=== PATIENT | female | born 1970 | race Caucasian/White ===

== ENCOUNTER 2018-03-05 08:12 | Day surgery (SDC) | payer OTHER ==
[2018-03-05] MEDS ORDERED: LR 1,000 ML IV ONE (08:23)
[2018-03-05] MEDS ORDERED: LIDOCAINE 1% 2 ML INJ ID PRN (08:23)
[2018-03-05] MEDS ORDERED: BUPIVACAINE 0.25% 30 ML SDV ONE (08:40)
--- NOTE | 2018-03-05 09:35 | PDHPUP ---
History & Physical Update H&P update statement: This history and physical update is based on an assessment of the patient which was completed after admission or registration (within 24 hours), but prior to the surgery/procedure. H&P update: no change in patient's condition since H&P completed (Heart and lungs on pre op exam normal)
--- NOTE | 2018-03-05 09:35 | PDANEPAE ---
ANE Past Medical History - Cardiovascular History Hx Hypertension: No Hx Arrhythmias: No Hx Chest Pain: No Hx Coronary Artery / Peripheral Vascular Disease: No Hx CHF / Valvular Disease: No Hx Palpitations: No - Pulmonary History Hx COPD: No Hx Asthma/Reactive Airway Disease: No Hx Recent Upper Respiratory Infection: No Hx Oxygen in Use at Home: No Hx Sleep Apnea: No Sleep Apnea Screening Result - Last Documented: Negative - Neurologic History Hx Cerebrovascular Accident: No Hx Seizures: No Hx Dementia: No Neurologic History Comment: restless leg syndrome - Endocrine History Hx Diabetes: No - Renal History Hx Renal Disorders: No - Liver History Hx Hepatic Disorders: No - Neurological & Psychiatric Hx Hx Neurological and Psychiatric Disorders: Yes Neurological / Psychiatric History Comment: depression - Cancer History Hx Cancer: No - Congenital Disorder History Hx Congenital Disorders: No - GI History Hx Gastrointestinal Disorders: Yes Gastrointestinal History Comment: reflux. hiatal hernia - Other Health History Other Health History: wears glasses/ contacts - Chronic Pain History Chronic Pain: No - Surgical History Prior Surgeries: zulema ANE Review of Systems Review of Systems: - Exercise capacity METS (RN): 4 METS ANE Patient History - Allergies Allergies/Adverse Reactions: Sulfa (Sulfonamide Antibiotics) Allergy (Verified 03/04/18 11:21) had when she was little- she thinks rash - Home Medications Home Medications: Mobic 15 mg 03/04/18 [Last Taken 03/04/18] PRISTIQ 03/04/18 [Last Taken 03/04/18] Requip 03/04/18 [Last Taken 03/04/18] Topamax 03/04/18 [Last Taken 03/04/18] Vitamin D3 03/04/18 [Last Taken 03/04/18] - NPO status NPO Since - Liquids (Date): 03/04/18 NPO Since - Liquids (Time): 23:30 NPO Since - Solids (Date): 03/04/18 NPO Since - Solids (Time): 23:30 - Smoking Hx Smoking Status: Never smoked - Family Anes Hx Family Hx Anesthesia Complications: none ANE Labs/Vital Signs - Vital Signs Blood Pressure: 120/79 Heart Rate: 78 Respiratory Rate: 14 O2 Sat (%): 95 Height: 162.56 cm Weight: 122.016 kg ANE Physical Exam - Airway Neck exam: FROM Mallampati Score: Class 1 Mouth exam: normal dental/mouth exam - Pulmonary Pulmonary: no respiratory distress, no rales or rhonchi, clear to auscultation - Cardiovascular Cardiovascular: regular rate and rhythym, no murmur, rub, or gallop - ASA Status ASA Status: III ANE Anesthesia Plan Anesthesia Plan: GA w LMA
[2018-03-05] MEDS ORDERED: fentaNYL 100 MCG/2 ML INJ ONE ×2 (09:36→11:26)
[2018-03-05] MEDS ORDERED: MIDAZOLAM 2 MG/2 ML VIAL ONE (09:36)
[2018-03-05] MEDS ORDERED: PROPOFOL/EMULSION 500 MG/50 ML BOTTLE IV ONE (09:36)
--- NOTE | 2018-03-05 09:37 | POSTOPPROG ---
Post Op Note Date of Operation: 03/05/18 Surgeon: Tom Dudley Anesthesiologist: Brenda Mims Anesthesia: LMA Pre-op Diagnosis: Right radial head fracture Post-op Diagnosis: same Indication: displaced fracture Procedure: ORIF Right radial head fracture Findings: fracture as above Inf/Abcess present in the surg proc area at time of surgery?: No Depth: Deep Incisional (Fascial) EBL: Minimal Total fluids administered: 600cc Complications: none Specimen(s): no
[2018-03-05] MEDS ORDERED: ONDANSETRON 4 MG/2 ML VIAL IVP PRN (10:14)
[2018-03-05] MEDS ORDERED: ALBUTEROL 3 ML DEYVIAL IH PRN (10:14)
[2018-03-05] MEDS ORDERED: NALOXONE HCL 0.4 MG/ML INJ IVP PRN (10:14)
[2018-03-05] MEDS ORDERED: LR 500 ML IV PRN (10:14)
[2018-03-05] MEDS ORDERED: HYDROCODONE/APAP 5/325 TAB PO PRN (10:14)
[2018-03-05] MEDS ORDERED: DEXAMETHASONE 4 MG/ML VIAL IVP PRN (10:14)
[2018-03-05] MEDS ORDERED: ACETAMINOPHEN 500 MG TAB PO PRN (10:14)
[2018-03-05] MEDS ORDERED: PROMETHAZINE HCL 25 MG/ML INJ IVP PRN (10:14)
[2018-03-05] MEDS ORDERED: RANITIDINE 50 MG/2 ML VIAL ONE (10:15)
[2018-03-05] MEDS ORDERED: METOCLOPRAMIDE 10 MG/2 ML VIAL ONE (10:15)
[2018-03-05] MEDS ORDERED: DEXAMETHASONE 4 MG/ML VIAL ONE (10:15)
[2018-03-05] MEDS ORDERED: ONDANSETRON 4 MG/2 ML VIAL ONE ×2 (10:15→11:26)
[2018-03-05] MEDS ORDERED: LIDOCAINE 2% 5 ML SDV ONE (10:15)
[2018-03-05] MEDS ORDERED: KETOROLAC 30 MG/1 ML SDV ONE (10:15)
[2018-03-05] MEDS ORDERED: ceFAZolin 1 GM VIAL ONE (10:27)
[2018-03-05] MEDS: fentaNYL 100 MCG/2 ML INJ IVP PRN ×2 (11:30→11:40)
--- NOTE | 2018-03-05 11:53 | GOP ---
[f rep st] OPERATIVE REPORT DATE OF OPERATION: 03/05/2018 SURGEON: Tom Dudley MD PREOPERATIVE DIAGNOSIS: Right lateral epicondylar bone spur and also radial head comminuted intra-ar ticular fracture. POSTOPERATIVE DIAGNOSIS: Right lateral epicondylar bone spur and also radial head comminuted intra-a rticular fracture. PROCEDURE PERFORMED: Excision of lateral epicondylar bone spur and open reduction, internal fixation of comminuted radial head fracture. FINDINGS: INDICATIONS: This patient had a large lateral epicondylar bone spur and also had a comminuted intra- articular radial head fracture with significant displacement and it was felt that open reduction, int ernal fixation of the fracture was needed. At the same time the large lateral epicondylar bone spur was excised. DESCRIPTION OF PROCEDURE: Under general anesthesia, the patient's right arm was prepped and draped i n the usual fashion. Arm tourniquet applied at 250 mmHg. A longitudinal incision was made centered over the radial capitellar joint, but extending up to the lateral epicondylar area and down to the ra dial neck area. The skin and subcutaneous tissue were reflected. The common extensor origin was minna vated enough so that the lateral epicondylar bone spur was well exposed and also the radiocapitellar joint could be well visualized. The bone spur was excised down to smooth healthy cancellous bone. T he common extensor origin appeared to be healthy. No significant degenerative change was seen at the common extensor origin. The radial head fracture was 3 fragments, 1 of which was attached to the sh aft and 2 peripheral fragments which made up 3/4 of the articular surface. Those articular fragments were mobilized and reduced into anatomic alignment and then 3 screws were placed, 1 screw locking ea ch of the articular fragments to the shaft fragment and 1 screw extending from the 1 fragment to the other. This triangulation fixation using 2 mm modular handset screws provided very nice fixation of the fracture and also stabilized anatomic alignment. Rotation of the forearm was tested and found to be smooth. The screws were visualized under fluoroscopic control and it was assured that none of th e screws penetrated the opposite side from the fracture and the screws were countersunk so that they were smoothed with the bone at the neck of the radial head. The capitellum was found to be free of a rticular damage. There was a large amount of organized hematoma at the radiocapitellar joint, which was irrigated out. The annular ligament which had been partly split proximally was suture repaired w ith 4-0 PDS [id number] sutures. Capsule at the radial capitellar joint repaired with 4-0 PDS, t he same as the common origin repair over the cancellous bone at the lateral epicondyle and the repair of soft tissues went very smoothly with good approximation. Then the subcutaneous tissue was closed with 4-0 PDS. Skin closed with horizontal mattress sutures of 5-0 Prolene. A bulky soft dressing w as applied followed by a posterior fiberglass splint held in place with an Juan bandage. Tourniquet d eflation resulted in immediate pinking of the digits. She was brought to the recovery area where det alison postoperative instructions were given prior to discharge. A prescription for Percocet and Kefl ex was provided. She had been given 2 g of Ancef prior to commencement of surgery, 7 cc of 0.25% Mar rocky was used at the fracture site for postoperative pain management. Followup arrangements in the office for about a week postop for dressing and suture removal and cast application for 3 additional weeks. INDICATIONS: Comminuted displaced radial head fracture. /[id number]/MODL
[2018-03-05 12:18] VITALS: BP 127/81
[2018-03-05] MEDS ORDERED: HYDROCODONE/APAP 5/325 TAB ONE (12:22)
== END 2018-03-05 13:00 | disposition home or self-care (01) ==
LOC: FSGY 08:12
PROVIDERS: ATTEND Specialist
PROC: 0PSH04Z Reposition Right Radius with Internal Fixation Device, Open Approach (ICD-10-PCS; principal; 2018-03-05 09:30)
PROC: 0PBF0ZZ Excision of Right Humeral Shaft, Open Approach (ICD-10-PCS; principal; 2018-03-05 09:30)
DX: S52.121A Displaced fracture of head of right radius, initial encounter for closed fracture (principal); W01.0XXA Fall on same level from slipping, tripping and stumbling without subsequent striking against object, initial encounter; M77.11 Lateral epicondylitis, right elbow; M17.11 Unilateral primary osteoarthritis, right knee; K21.9 Gastro-esophageal reflux disease without esophagitis; Z88.2 Allergy status to sulfonamides
CPT/HCPCS: C1713; J0690; J1100; J1885; J2250; J2405; J2704; J2765; J2780; J3010